=== PATIENT | female | born 1985 | race Caucasian/White ===

== ENCOUNTER 2024-05-22 13:09 | Emergency (ER) | payer MEDICAID ==
[~2024-05-22] VITALS: Ht 157.5 cm; Wt 56.8 kg
[2024-05-22 13:27] VITALS: BP 111/69; PULSE 72; RESP 18; TEMP 98; O2SAT 100
[2024-05-22 15:06] LABS: BILIRUBIN,URINE NEGATIVE (Neg); CLARITY,URINE CLOUDY (Clear); COLOR,URINE YELLOW (Yellow); GLUCOSE, URINE NEGATIVE (Neg); KETONES,URINE NEGATIVE (Neg); LEUKOCYTE ESTERASE ,URINE SMALL (Neg); NITRITES, URINE NEGATIVE (Neg); OCCULT BLOOD,URINE MODERATE (Neg); PROTEIN,URINE 100 mg/dl (Neg); URINE HCG NEGATIVE (NEG); UROBILINOGEN,URINE 0.2 E.U/dL (0.2-1.0)
[2024-05-22 15:07] LABS: UA COLLECTION TYPE VOIDED
[2024-05-22 15:15] LABS: BACTERIA,URINE 2+ /HPF (Neg); MUCUS STRANDS FEW /LPF (Neg); SQUAMOUS EPITHELIAL CELL,UR MODERATE /LPF (FEW); WBC CLUMPS,URINE MANY /HPF (NEGATIVE)
[2024-05-22 15:16] LABS: WBC,URINE TNTC /HPF (0-4)
[2024-05-22] MEDS ORDERED: NITR100C6 PO (16:02)
[2024-05-22] MEDS: nitrofuran monohydrate/nitrofuran macrocrysal 100 MG (MacroBID) capsule PO STA (16:45)
== END 2024-05-22 16:46 | disposition home or self-care (01) ==
LOC: ER 13:09
DX: N39.0 Urinary tract infection, site not specified (principal)
CPT/HCPCS: 81001; 81025; 87077; 87088; 87186; 99283